=== PATIENT | female | born 1975 | race Hispanic/Latino ===

== ENCOUNTER → 2018-06-03 | Day surgery (SDC) | payer BC ==
[~2018-06-03] MED LIST: DEXAMETHASONE SOD PHOS INJ 4 MG/ML VIAL ONE; LIDOCAINE HCL 2% LOCAL INJ 5 ML SDV VIAL INJ ONE; MELOXICAM7.5 MG PO; MIDAZOLAM HCL 2 MG/2 ML VIAL ONE; ONDANSETRON HCL INJ 2MG/ML 2ML 2 MG/ML VIAL ONE; PANTOPRAZOLE SO40 MG PO; PROPOFOL IV EMULSION 10 MG/ML 20 ML VIAL ONE
--- OUTSIDE RECORDS SUMMARY | 2018-06-03 09:24 | XMS REPORT | Clinical Summary ---
Author Author [facility] Address Unknown Phone Unavailable Care Team Providers Care Encyclopedia Research Worker Name Role Phone Ander Ventura MD PCP Allergies No Known Allergies Medications End Date Status Medication Sig Dispensed Refills Start Date Active pantoprazole (PROTONIX) Take 20 mg by 0 20 MG EC tablet mouth daily. 07/02/2018 Active meloxicam (MOBIC) 15 mg Take 1 tablet 30 tablet 1 tablet (15 mg total) 9 by mouth daily as needed for mild pain or moderate pain for up to 30 days. call your PCP for refills Active Problems Not on file Encounters Care Team Description Date Type Specialty Baylee Babcock MD Acute pain of right shoulder (Primary Dx); Chronic pain of right knee; Patellofemoral disorder of right knee; Impingement syndrome of right shoulder; Partial nontraumatic tear of rotator cuff, right 06/02/2018 Office Visit Orthopedic Surgery after 06/02/2017 Family History Medical History Relation Name Comments Cancer Father Mihai Mejias Diabetes Father Mihai Mejias Cancer Mother Caitlin Mejias Relation Name Status Comments Father Mihai Mejias Mother Caitlin Mejias Social History Date Tobacco Use Types Packs/Day Years Used Never Smoker Smokeless Tobacco: Never Used Alcohol Use Drinks/Week oz/Week Comments No Sex Assigned at Date Recorded Not on file Industry Job Start Date Occupation Not on file Not on file Not on file Travel End Travel History Travel Start No recent travel history available. Last Filed Vital Signs Not on file Plan of Treatment Health Maintenance Due Date Last Done Comments CERVICAL CANCER SCREENING 11/28/1995 INFLUENZA VACCINE 10/06/2017 Procedures Comments Procedure Name Priority Date/Time Associated Diagnosis XR KNEE 4+ VW RIGHT Routine 06/02/2018 Acute pain of right 9:35 AM CDT shoulder XR SHOULDER 2+ VW RIGHT Routine 06/02/2018 Acute pain of right 9:34 AM CDT shoulder WI ARTHROCENTESIS Routine 06/02/2018 Impingement syndrome of ASPIR&/INJ MAJOR JT/BURSA 8:55 AM CDT right shoulder W/O US after 06/02/2017 Results * XR Knee 4+ Vw Right (06/02/2018 9:35 AM CDT) Narrative Performed At [facility] Radiographs of the right knee, 4 views, standing AP, standing PA notch, lateral, and sunrise views: No fracture, no dislocation, normal alignment, preserved joint spaces, and no pathologic lesion Performing Organization Address [facility] [place] Phone Number [employer] [address] [place] [address] * XR Shoulder 2+ Vw Right (06/02/2018 9:34 AM CDT) Narrative Performed At [facility] Radiographs of the right shoulder, 3 views, AP, Y and axillary lateral views: No fracture, no dislocation, normal alignment, preserved glenohumeral joint space, no pathologic lesion, no greater tuberosity cysts, preserved acromiohumeral interval, type II acromion, AC joint degenerative changes Performing Organization Address [facility] [place] Phone Number [employer] [address] [place] [address] * Large Joint Arthrocentesis: subacromial bursa, right (06/02/2018 8:55 AM CDT) Narrative Performed At Baylee Babcock MD 06/02/2018 12:39 PM Large Joint Arthrocentesis: subacromial bursa, right Supporting Documentation Indications: pain Procedure Details Location: subacromial bursa - Location: - right Right side: Approach: posterior Right subacromial bursa medications administered: 2 mL lidocaine 10 mg/mL (1 %); 6 mg betamethasone acetate & sodium phosphate 6 mg/mL (The patient will apply ice to the injected area today and use OTC meds as needed for injection pain. We discussed potential risks to include infection, pain, ineffectuality, fat atrophy, skin pigmentation loss, and need for more treatment.) after 06/02/2017 Insurance Payer Benefit Subscriber ID Type Phone Address Plan / Group BCBS BCBS OUT xxxxxxxxxxxx PPO OF STATE Advance Directives Patient has advance care planning documents on file. For more information, lucinda e contact: Gino Dubon [address] [place] [address]
[2018-06-03 11:45] VITALS: BP 114/76
== END | disposition home or self-care (01) ==
LOC: OR 09:21
PROVIDERS: ATTEND Surgery
DX: K29.70 Gastritis, unspecified, without bleeding (principal); K22.2 Esophageal obstruction; K31.1 Adult hypertrophic pyloric stenosis; K31.89 Other diseases of stomach and duodenum; K21.9 Gastro-esophageal reflux disease without esophagitis; M06.9 Rheumatoid arthritis, unspecified
CPT/HCPCS: 43245; 43249; C1726; J1100; J2001; J2250; J2405; J2704; 43239; 43450

== ENCOUNTER → 2018-06-08 | Outpatient (CLI) | payer BC ==
[~2018-06-08] MED LIST changes: -DEXAMETHASONE SOD PHOS INJ 4 MG/ML VIAL ONE; +DIATRIZOATE MEGL/DIATRIZOA SOD 30 ML BTL PO ONE; +IOPAMIDOL 370 MG/ML 200 ML INFUS..BTL INJ ONE; -LIDOCAINE HCL 2% LOCAL INJ 5 ML SDV VIAL INJ ONE; -MIDAZOLAM HCL 2 MG/2 ML VIAL ONE; -ONDANSETRON HCL INJ 2MG/ML 2ML 2 MG/ML VIAL ONE; -PROPOFOL IV EMULSION 10 MG/ML 20 ML VIAL ONE; +SODIUM CHLORIDE 0.9% 50ML 50 ML ONE
--- NOTE | 2018-06-08 19:08 | Diagnostic Imaging Report ---
EXAM: CT Abdomen and Pelvis WITH contrast INDICATION: Epigastric pain. Abdominal pain. Cholecystectomy. Pelvic surgery. COMPARISON: None. TECHNIQUE: Abdomen and pelvis were scanned utilizing a multidetector helical scanner from the lung base to the pubic symphysis after administration of IV contrast. Coronal and sagittal reformations were obtained. Routine protocol was performed. Scan was performed when during portal venous phase. IV CONTRAST: 100 mL of Isovue-370 ORAL CONTRAST: Water COMPLICATIONS: None RADIATION DOSE: Total DLP: 500.2 mGy*cm Estimated effective dose: (DLP x 0.015 x size factor) mSv CTDIvol has been reviewed. It is below the limits set by the Radiation Protocol Committee (RPC). Dose modulation, iterative reconstruction, and/or weight based adjustment of the mA/kV was utilized to reduce the radiation dose to as low as reasonably achievable. FINDINGS: LINES and TUBES: None. LOWER THORAX: Unremarkable HEPATOBILIARY: No focal hepatic lesions. No biliary ductal dilation. GALLBLADDER: Cholecystectomy SPLEEN: No splenomegaly. PANCREAS: No focal masses or ductal dilatation. ADRENALS: No adrenal nodules KIDNEYS/URETERS: Kidneys enhance symmetrically. No hydronephrosis. No cystic or solid mass lesions. No stones. GI TRACT: No abnormal distention, wall thickening, or evidence of bowel obstruction. Scattered diverticulosis without evidence of diverticulitis. Appendix is normal. PELVIC ORGANS/BLADDER: Simple appearing right adnexal cyst. LYMPH NODES: No lymphadenopathy. VESSELS: Unremarkable. PERITONEUM / RETROPERITONEUM: No free air or fluid. BONES: Unremarkable. SOFT TISSUES: Unremarkable. IMPRESSION: 1. Scattered diverticulosis without evidence of diverticulitis. Signed by: Dr. Sterling Lizama M.D. on 06/08/2018 7:04 PM
== END ==
LOC: CT 17:10
PROVIDERS: ATTEND Surgery
DX: R10.13 Epigastric pain (principal)
CPT/HCPCS: 74177; Q9967

== ENCOUNTER → 2018-06-09 | Outpatient (CLI) | payer BC ==
[~2018-06-09] MED LIST changes: -DIATRIZOATE MEGL/DIATRIZOA SOD 30 ML BTL PO ONE; -IOPAMIDOL 370 MG/ML 200 ML INFUS..BTL INJ ONE; -SODIUM CHLORIDE 0.9% 50ML 50 ML ONE
--- NOTE | 2018-06-09 11:12 | Diagnostic Imaging Report ---
PROCEDURE: X-RAY UPPER GI SERIES WITH SMALL BOWEL FOLLOW-THROUGH COMPARISON: None. INDICATIONS: STOMACH PAIN, DIARRHEA FINDINGS: Debate Director film shows residual contrast within the colon from a recently performed CT scan. The patient was given air crystals, thick barium, and thin barium to drink in upright and prone positions. Multiple images of the esophagus, stomach and duodenum were obtained. The patient was given additional barium to drink and sequential images of the abdomen were obtained through 45 minutes. Spot images of the small bowel and terminal ileum were then obtained. The esophagus is normal in appearance without evidence of dysmotility, stricture, or mucosal irregularity. No reflux was visualized during the examination. The stomach and duodenum are normal without evidence of intrinsic mucosal or extrinsic abnormality. Duodenal bulb is normal. Small bowel motility and caliber are normal. There is no evidence of mass or mucosal abnormality. The terminal ileum is normal. Fluoroscopy time: 3 minutes Total dose: 193.01 mGy CONCLUSION: Normal Upper GI Series and small bowel follow-through. Diego Pearce D.O. Dictated by: Diego Pearce D.O. on 06/09/2018 at 11:12 Electronically approved by: Diego Pearce D.O. on 06/09/2018 at 11:12
== END ==
LOC: DX 07:36
PROVIDERS: ATTEND Surgery
DX: R10.13 Epigastric pain (principal)
CPT/HCPCS: 74249

== ENCOUNTER → 2018-07-13 | Outpatient (CLI) | payer BC ==
--- NOTE | 2018-07-13 20:42 | Diagnostic Imaging Report ---
Solid-phase gastric emptying study Reason for examination: Epigastric pain The protocol used for this study is based on the Consensus Recommendations for Gastric Scintigraphy by the [place] [employer] and the Society of Nuclear Medicine. Clinical information: The patient is not diabetic. The patient had gastric fundoplication about 10 years ago. The patient is on metoclopramide but has not taken it for the past one week. The patient has been fasting for at least 6 hours prior to this exam. Radiopharmaceutical: Tc-99m sulfur colloid 1 mCi Report: The radiopharmaceutical was added to 1/2 cup egg whites that were then prepared and served with 2 pieces of white bread toasted, 30 grams of jam and 4 ounces of water. The patient took the meal orally without difficulty. Images were obtained of the abdomen in the anterior and posterior projections at 10 minutes post the meal and at 1, 2, 3, and 4 hours. Uptake was determined from the geometric mean of the anterior and posterior counts and the counts were corrected for decay of the radiolabel. The percent gastric retention of the labeled meal at: 1 hour was 33% (normal 30-90%) 2 hours was 13% (normal <60%) 3 hours was 7% (normal <30%) 4 hours was 3% (normal <10%) Impression: Normal gastric emptying pattern. The findings do not support the clinical diagnosis of gastroparesis. Signed by: Dr. Danielle Ascencio M.D. on 07/13/2018 8:38 PM
== END ==
LOC: NM 08:10
PROVIDERS: ATTEND Surgery
DX: R10.13 Epigastric pain (principal)
CPT/HCPCS: 78264; A9541